=== PATIENT | male | born 1970 | race African-American/Black ===

== ENCOUNTER 2019-07-25 00:15 | Emergency (ER) | payer SELFPAY ==
[~2019-07-25] VITALS: Ht 188 cm; Wt 95.3 kg
--- NOTE | 2019-07-25 03:11 | PHYS DOC ---
Past Medical History Past Medical History: Hypertension, Schizophrenia Past Surgical History: No Surgical History Alcohol Use: None Drug Use: None Adult General Chief Complaint Chief Complaint: ABDOMINAL PAIN HPI HPI Patient is a 49 year old male who presents with complaint of abdominal pain. The patient states his abdomen started hurting 2 days ago. Patient states that he is having generalized dull abdominal pain that comes and goes. Currently states that he is feeling much better and is not experiencing pain at this time. Patient has history of schizophrenia and homelessness. Denies any associated fever, vomiting, or loose stools. Has not taking medications for his symptoms. Denies any localization of pain symptoms at this time. Review of Systems Review of Systems Constitutional: Denies fever or chills [] Eyes: Denies change in visual acuity, redness, or eye pain [] HENT: Denies nasal congestion or sore throat [] Respiratory: Denies cough or shortness of breath [] Cardiovascular: Denies chest pain or edema[] GI: Abdominal pain, denies nausea, vomiting, bloody stools or diarrhea [] : Denies dysuria or hematuria [] Musculoskeletal: Denies back pain or joint pain [] Integument: Denies rash or skin lesions [] Neurologic: Denies headache, focal weakness or sensory changes [] All other systems were reviewed and found to be within normal limits, except as documented in this note. Allergies Allergies Allergies Coded Allergies Type Severity Reaction Last Updated Verified No Known Drug Allergies 07/25/19 No Physical Exam Physical Exam Constitutional: Alert, afebrile, no acute distress. [] HENT: Normocephalic, atraumatic, bilateral external ears normal, oropharynx moist, no oral exudates, nose normal. [] Eyes: PERRLA, EOMI, conjunctiva normal, no discharge. [] Neck: Normal range of motion, no tenderness, supple, no stridor. [] Cardiovascular:Heart rate regular rhythm, no murmur [] Lungs & Thorax: Bilateral breath sounds clear to auscultation [] Abdomen: Bowel sounds normal, soft, no tenderness, no masses, no pulsatile masses. [] Skin: Warm, dry, no erythema, no rash. [] Back: No tenderness, no CVA tenderness. [] Extremities: No tenderness, no cyanosis, no clubbing, ROM intact, no edema. [] Neurologic: Alert and oriented X 3, normal motor function, normal sensory function, no focal deficits noted. [] Current Patient Data Vital Signs Vital Signs Date Time Temp Pulse Resp B/P (MAP) Pulse Ox O2 Delivery O2 Flow Rate FiO2 07/25/19 03:21 71 119/56 (77) 100 Room Air 07/25/19 02:51 16 07/25/19 00:15 98.6 98.6 Lab Values Not performed EKG EKG Not performed[] Radiology/Procedures Radiology/Procedures Not performed[] Course & Med Decision Making Course & Med Decision Making Pertinent Labs and Imaging studies reviewed. (See chart for details) Patient's examination is benign and vital signs are stable at this time. Medical screening examination was completed in the emergency department with no evidence of an emergency condition at this time. Advised use of antiacids as needed and liquid diet with advancement as tolerated. Advised follow-up with primary doctor in 3 days for reevaluation and return to the emergency department for any worsening symptoms. Patient voiced understanding and in agreement with treatment plan. Dragon Disclaimer Dragon Disclaimer This electronic medical record was generated, in whole or in part, using a voice recognition dictation system. Departure Departure Impression: Primary Impression: Abdominal pain Disposition: HOME, SELF-CARE Condition: IMPROVED Referrals: NO PCP (PCP) Patient Instructions: Abdominal Pain (Nonspecific) Additional Instructions: Follow-up with your primary doctor in the next 3 days for reevaluation. Return to the emergency department for any worsening symptoms. Problem Qualifiers Primary Impression: Abdominal pain Abdominal location: generalized Qualified Codes: R10.84 - Generalized abdominal pain MAR YOUNG MD Jul 25, 2019 03:11
[2019-07-25 03:21] VITALS: BP 119/56
== END 2019-07-25 03:50 | disposition home or self-care (01) ==
LOC: ER 00:15
DX: R10.84 Generalized abdominal pain (principal); I10 Essential (primary) hypertension; F20.9 Schizophrenia, unspecified; Z59.0 Homelessness
CPT/HCPCS: 99283